=== PATIENT | female | born 2000 | race Caucasian/White ===

== ENCOUNTER 2021-11-10 15:10 | Emergency (ER) | payer OTHER, SELFPAY ==
[2021-11-10 15:18] VITALS: BP 124/71; PULSE 85; RESP 14; TEMP 36.4; O2SAT 97; BMI 25.8
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
[2021-11-10] MEDS: IBUPROFEN 400 MG TABLET 800 MG PO (16:53)
[2021-11-10] MEDS: CYCLOBENZAPRINE 10 MG TABLET PO (16:54)
[2021-11-10 17:20] VITALS: PULSE 79; O2SAT 98
[2021-11-10 17:21] VITALS: BP 116/65; PULSE 79; O2SAT 98
[2021-11-10 17:30] VITALS: BP 116/60; PULSE 75; O2SAT 99
== END 2021-11-10 17:52 | disposition home or self-care (01) ==
PROVIDERS: Emergency Provider Emergency Medicine
DX: S16.1XXA Strain of muscle, fascia and tendon at neck level, initial encounter (principal); M54.6 Pain in thoracic spine; V89.2XXA Person injured in unspecified motor-vehicle accident, traffic, initial encounter
CPT/HCPCS: 70450; 72125; 99284